=== PATIENT | female | born 1955 | race Caucasian/White ===

== ENCOUNTER 2022-10-21 15:16 | Inpatient (IN) | payer MEDICARE, MEDICAID ==
[~2022-10-21] VITALS: Ht 172.7 cm; Wt 83.9 kg
[2022-10-21 15:18] VITALS: BP 64/35
--- NOTE | 2022-10-21 15:22 | NUR ---
PATIENT BIBA TO BED 8.
[2022-10-21 15:27] VITALS: BP 65/30
[2022-10-21] MEDS ORDERED: NACL 0.9% 1,000 ML IV ONE (15:55)
[2022-10-21 16:58] LABS: HEMATOCRIT 25.3 % (36-48); HEMOGLOBIN 7.2 g/dL (12.0-16.0); MEAN CORPUSCULAR HEMOGLOBIN 27 pg (27-31); MEAN CORPUSCULAR HGB CONC 28 g/dL (33-37); MEAN CORPUSCULAR VOLUME 94.2 fL (80-94); PLATELET COUNT (AUTO) 293 K/uL (140-450); RED BLOOD CELL COUNT(AUTO) 2.69 MIL/uL (4.20-5.40); RED CELL DISTRIBUTION WIDTH 23.9 % (11.6-13.7); WHITE BLOOD COUNT (AUTO) 19.8 K/uL (4.8-10.8)
[2022-10-21 17:16] LABS: ALBUMIN 0.9 g/dL (3.4-5.0); ANION GAP 15.4 (8-16); CARBON DIOXIDE 12.1 mmol/L (21-32); CREATININE 1.6 mg/dL (0.6-1.3); POTASSIUM 4.5 mmol/L (3.5-5.1); TOTAL BILIRUBIN 0.2 mg/dL (0.0-1.0)
--- NOTE | 2022-10-21 17:20 | NUR ---
DAMARIS GONZALEZ made aware of critical lab result. BUN 103
[2022-10-21 17:24] LABS: LYMPHOCYTES % (MANUAL) 2 % (20-46); MONOCYTES % (MANUAL) 4 % (5-12)
--- NOTE | 2022-10-21 18:36 | NUR ---
FRANCINE left with lab.
[2022-10-21 18:58] VITALS: BP 62/30
[2022-10-21] MEDS ORDERED: ACETAMINOPHEN 325 MG TAB PO PRN (19:40)
[2022-10-21] MEDS ORDERED: DOCUSATE SODIUM 100 MG GELCAP PO PRN (19:40)
[2022-10-21] MEDS ORDERED: MAG SULF 2000 MG/WATER PREMIX 50 ML IV PRN (19:40)
[2022-10-21] MEDS ORDERED: ONDANSETRON 4 MG/2 ML VIAL IVP PRN (19:40)
[2022-10-21] MEDS ORDERED: POTASSIUM CHLORIDE 10 MEQ TABER PO PRN (19:40)
[2022-10-21] MEDS ORDERED: LORazepam 2 MG/ML VIAL IVP PRN (19:40)
[2022-10-21] MEDS ORDERED: ZOLPIDEM 10 MG TAB PO PRN (19:40)
[2022-10-21] MEDS ORDERED: INSULIN LISPRO SLIDING SCALE 100 UNITS/ML VIAL SUBQ PRN (19:45)
[2022-10-21] MEDS ORDERED: DEXTROSE 50% 50 ML SYR IVP PRN (19:45)
[2022-10-21] MEDS: NACL 0.45% 1,000 ML IV SCH (20:00)
--- NOTE | 2022-10-21 20:00 | NUR ---
RECEIVED PT ON VENT, UNRESPONSIVE PTS CONDITION IS DETERIORATING, HYPOTENSIVE AND BRADYCARDIC. PTS AT BEDSIDE. WARM BLANKETS GIVEN
--- NOTE | 2022-10-21 21:00 | NUR ---
PTS HR REMAINS BRADYCARDIC AND IS HYPOTENSIVE. IV INFUSING, F/C DRAINING SMALL AMOUNT DARK VALERIY/ BROWN COLORED URINE. SKIN IS COOL TO TOUCH
[2022-10-21] MEDS ORDERED: PIPERACILLIN/TAZOBACTAM 2.25 GM VIAL IV ONE (21:04)
[2022-10-21] MEDS: BLOOD GLUCOSE MONITORING 1 DEV DEV FS SCH (21:23)
[2022-10-21] MEDS: PIPERACILLIN/TAZOBACTAM 2.25 GM in DEXTROSE 5% 50 ML IV SCH (21:23)
--- NOTE | 2022-10-21 22:40 | NUR ---
VS REMAIN THE SAME, PT APPEARS UNCOMFORTABLE, MEDICATED ORDERED. FAMILY REMAINS AT BEDSIDE
--- NOTE | 2022-10-21 23:00 | NUR ---
VS UNCHANGED. PER FAMILY, PT LOOKS RELAXED NOW AND APPEARS MORE COMFORTABLE.
[2022-10-22 00:24] VITALS: BP 61/31
[2022-10-22] MEDS: MORPHINE SULFATE 2 MG/ML SYR IVP PRN ×2 (01:43→02:58)
--- NOTE | 2022-10-22 02:00 | NUR ---
REMAINS HYPOTENSIVE AND BRADYCARDIC. WARM BLANKETS GIVEN
[2022-10-22] MEDS: NACL 0.45% 1,000 ML IV SCH (02:20)
--- NOTE | 2022-10-22 04:00 | NUR ---
NO CHANGE IN CONDITION
[2022-10-22 04:44] VITALS: BP 59/29
--- NOTE | 2022-10-22 06:00 | NUR ---
LAB AT BEDSIDE
[2022-10-22] MEDS ORDERED: PIPERACILLIN/TAZOBACTAM 2.25 GM VIAL IV ONE (07:22)
[2022-10-22] MEDS: PIPERACILLIN/TAZOBACTAM 2.25 GM in DEXTROSE 5% 50 ML IV SCH (07:24)
[2022-10-22 07:48] LABS: MEAN CORPUSCULAR HEMOGLOBIN 27 pg (27-31); MEAN CORPUSCULAR HGB CONC 30 g/dL (33-37); MEAN CORPUSCULAR VOLUME 90.4 fL (80-94); PLATELET COUNT (AUTO) 292 K/uL (140-450); RED BLOOD CELL COUNT(AUTO) 2.04 MIL/uL (4.20-5.40); RED CELL DISTRIBUTION WIDTH 23.6 % (11.6-13.7)
[2022-10-22 07:53] LABS: HEMATOCRIT 18.4 % (36-48); HEMOGLOBIN 5.5 g/dL (12.0-16.0)
[2022-10-22 08:00] LABS: CREATININE 1.7 mg/dL (0.6-1.3)
--- NOTE | 2022-10-22 08:00 | NUR ---
PT TRANSFERRED TO ICU VIA [facility]. RECEIVED BEDSIDE REPORT FROM GWENDOLYN. PT DNR. SB ON MONITOR. TRAC TO VENT. PEG IN PLACE, CLAMPED. COLOSTOMY IN PLACE. HR 48, RR 19, O2 SAT 99%, BP 58/40. IV TO LT HAND 24G, SALINE LOCKED. BED TO LOWEST POSITION, HOB ELEVATED, CALL LIGHT WITHIN REACH, WILL CONTINUE TO MONITOR.
[2022-10-22 08:07] LABS: ANION GAP 18.6 (8-16); CARBON DIOXIDE 9.7 mmol/L (21-32); LYMPHOCYTES % (MANUAL) 3 % (20-46); MONOCYTES % (MANUAL) 4 % (5-12); POTASSIUM 4.3 mmol/L (3.5-5.1)
--- NOTE | 2022-10-22 08:11 | NUR ---
PT WAS TRANSFERRED FROM ER BED 8 TO ICU 3 @0745. PT STABLE AND NO DISTRESS NOTED DURING TRANSFER. PT PLACED BACK ON VENT WITH SETTINGS AC/VC VT 450 RR18 +5 30%. ENT PLUGGED INTO RED OUTLET. AMBU BAG AT BEDSIDE. AIRWAY PATENT AND SECURE. WILL CONTINUE TO MONITOR.
[2022-10-22] MEDS: BLOOD GLUCOSE MONITORING 1 DEV DEV FS SCH (08:25)
--- NOTE | 2022-10-22 09:28 | NUR ---
FAMILY/ AND DAUGHTER AT BEDSIDE. UPDATED PT INFORMATION.
--- NOTE | 2022-10-22 09:49 | NUR ---
The patient's care was reviewed and supervised by Little Khalil RN.
--- NOTE | 2022-10-22 10:00 | NUR ---
DR SATNAM VALDEZ AT BEDSIDE, TALKED WITH FAMILY. ORDERED D/C ALL THE MEDICATIONS. PT ON COMFORT CARE WITH MORPHINE.
[2022-10-22] MEDS: MORPHINE SULFATE 50 MG in NACL 0.9% 45 ML IV PRN ×2 (11:03→15:34)
--- NOTE | 2022-10-22 11:09 | NUR ---
MORPHINE DRIP STARTED PER MD ORDER M FOR COMFORT CARE. PT UNRESPONSIVE, NON-MOVABLE, FAMILY/ AT BEDSIDE. BP 59/37, HR 46, RR 23, O2 SAT 98%
[2022-10-22 11:33] VITALS: BP 65/29
[2022-10-22 12:00] VITALS: BP 66/27
--- NOTE | 2022-10-22 13:00 | NUR ---
DISCHARGE PLANNING PATIENT IS A 67 YEAR OLD FEMALE ADMITTED TO [facility]/ED ON 10/21/2022 DUE TO SEPSIS. PATIENT WAS BROUGHT FROM [facility] WITH HYPOTENSION, BRADYCARDIA, AND LOW OXYGEN SATURATION. SW MEET WITH PATIENT, AND HER FAMILY AT BEDSIDE. PATIENT IS NOT AWAKE, ALERT AND CONSCIOUS, PATIENT IS UNABLE TO PROVIDE ANY INFORMATIONS HER PROGNOSIS IS NOT OPTIMISTIC AND MD HAS DISCUSSED WITH FAMILY ABOUT OPTIONS ON LEVEL OF CARE FOR PATIENT. PER THE FAMILY HAS GOT TOGETHER AND MADE THE DECISION TO FOCUS ON COMFORT CARE FOR PATIENT AT THIS TIME, THEREFORE MORPHINE IS BEING GIVEN AND PATIENT WILL BE REMOVED FROM RESPIRATOR LATER TONIGHT PER 'S DECISION. DURING CONVERSATION HE REQUESTED FOR RESOURCES TO MORTUARY'S INFORMATION AND DISCUSS PROCESS AND PROTOCOLS WHEN IT COMES TO PATIENT'S PASSING IN THE HOSPITAL. SW DISCUSSED THE URGENCY TO SELECT A MORTUARY AND SERVICES NEEDED FOR THEIR LOVEONE'S IN ORDER TO GET THEM CONSTRUCTION FLAGGER FROM THE [facility] SINCE THERE IS NO MORGUE AND PLANS WILL NEED TO BE ARRANGE ALMOST IMMEDIATELY PATIENT'S AGREED AND RECEIVED THE RESOURCES AND INFORMATION PROVIDED GIVE TO HIS SON CHIARA AND OTHER CHILDREN TO STAR MAKING CALLS AND ARRANGEMENTS. PER PATIENT'S PATIENT WAS LIVING WITH FAMILY AND THEIR ADULT SONS UP TO LAST JUNE. PATIENT HAD A TUMOR REMOVED AND THEN PATIENT GOT SICK AND WAS PLACED IN [facility], PATIENT HOWEVER, HAS PLENTY OF FAMILY SUPPORT, NO A.D. AND HER IS HER EMERGENCY CONTACT AND MEDICAL DECISION MAKER. PATIENT HAS NO ISSUES WITH MEDICATIONS AND PHARMACY IS IN [facility] IN [place] SINCE IT IS A [facility] MEMBER. PER PATIENT'S HE WAS THANKFUL FOR THE RESOURCES AND SW/JAQUELINE WILL BE FOLLOWING UP PATIENT NEEDED.
--- NOTE | 2022-10-22 13:40 | NUR ---
PER RN: THE PATIENT'S FAMILY DECIDED TO MAKE PATIENT DNR AND PT ON COMFORT MEASURES ONLY AT THIS TIME WILL DISCONTINUE NUTRITION ASSESSMENTS AND FOLLOW [employer] RD WILL REMAIN AVAILABLE FOR CONSULTS NEEDS AND WILL RESTART NUTRITION ASSESSMENT IF REQUESTED REI [address]
[2022-10-22 16:00] VITALS: BP 50/26
--- NOTE | 2022-10-22 16:18 | NUR ---
AT BEDSIDE. UPDATED WAITING FOR WHOLE FAMILY TO BE HERE TO MAKE DECISION FOR EXTUBATION.
[2022-10-22 16:30] VITALS: BP 53/29
--- NOTE | 2022-10-22 17:18 | NUR ---
ALL THE FAMILY GATHERED, DECIDED TO EXTUBATE PT. EXTUBATION ORDER CHECKED AND RT NOTIFIED.
--- NOTE | 2022-10-22 17:20 | NUR ---
PT EXTUBATED AT 1720 BY RT. FAMILY AT BEDSIDE.
--- NOTE | 2022-10-22 17:25 | NUR ---
PT LIFE SUPPORT WAS STOPPED AT 1720 AND EXTUBATED. FAMILY AT BEDSIDE.
--- NOTE | 2022-10-22 17:50 | NUR ---
BEDSIDE DOCTOR OF RADIOLOGY SHOW STRAIGHT LINE. HOUSE SUP/PAT NOTIFIED, FAMILY AT BEDSIDE.
--- NOTE | 2022-10-22 17:58 | NUR ---
OIL EXPELLER OPERATOR CALLED BY PRODUCTION PLANNING MANAGER AND ASKED TO PRONOUNCE THE PATIENT. PATIENT WITHOUT PULSE OR RESPIRATIONS, PRONOUNCED AT 1755.
--- NOTE | 2022-10-22 18:26 | NUR ---
[facility]ONER CALLED. WAIT FOR CALLING BACK.
--- NOTE | 2022-10-22 18:37 | NUR ---
[facility] CALLED. PT IS NOT A CANDIDATE FOR [employer], RELEASED BY [facility].
--- NOTE | 2022-10-22 18:47 | NUR ---
NIKKI VALDEZ CALLED. WAIT FOR CALLING BACK.
--- NOTE | 2022-10-22 19:15 | NUR ---
BEDSIDE REPORT ENDORSED TO OIL EXPELLER VAN RN FOR CONTINUITY OF CARE.
--- NOTE | 2022-10-22 19:55 | NUR ---
REPORT RECEIVED FROM AM SHIFT CHESTER ORDAZ. PT REPORTEDLY 1754. AWAITING PHONE CALL FROM MEMBERSHIP SOLICITOR TO RELEASE THE BODY.
--- NOTE | 2022-10-22 20:32 | NUR ---
SPOKE TO FORENSIC PSYCHOLOGIST DEPUTY BONILLA. RECEIVED ORDER TO RECEIVE THE BODY.
--- NOTE | 2022-10-22 21:32 | NUR ---
SPOKE TO MORTUARY REPLANTING MACHINE CREW DERRICK. ESTIMATED ARRIVAL TIME TO STEEL LAYER BODY IS IN 2 HRS.
--- NOTE | 2022-10-22 21:50 | NUR ---
PT CLEANED AND PUT IN BODY BAG.
--- NOTE | 2022-10-22 23:00 | NUR ---
BODY TAKEN BY MORTUARY.
== END 2022-10-22 17:55 | DRG 871 ==
LOC: MED 15:16 → MTU 19:38 → MIC 10-22 06:25
PROVIDERS: ADMIT Family Medicine; ATTEND Family Medicine
PROC: 5A1945Z Respiratory Ventilation, 24-96 Consecutive Hours (ICD-10-PCS; principal; 2022-10-21)
DX: A41.9 Sepsis, unspecified organism (principal); E43 Unspecified severe protein-calorie malnutrition; J96.01 Acute respiratory failure with hypoxia; R65.21 Severe sepsis with septic shock; E87.0 Hyperosmolality and hypernatremia; E87.20 Acidosis, unspecified; Z93.0 Tracheostomy status; Z66 Do not resuscitate; R00.1 Bradycardia, unspecified; D64.9 Anemia, unspecified; I46.9 Cardiac arrest, cause unspecified; R13.10 Dysphagia, unspecified; Z20.822 Contact with and (suspected) exposure to COVID-19; I12.9 Hypertensive chronic kidney disease with stage 1 through stage 4 chronic kidney disease, or unspecified chronic kidney disease; E11.22 Type 2 diabetes mellitus with diabetic chronic kidney disease; N18.9 Chronic kidney disease, unspecified; Z93.3 Colostomy status; Z93.1 Gastrostomy status; Z68.28 Body mass index [BMI] 28.0-28.9, adult
CPT/HCPCS: 36415; 80048; 80053; 82948; 83735; 85025; 87081; 93005; 94003; 96361; 96374; 99291; J2270; J2543; J7030; J7060